=== PATIENT | male | born 1955 | race Caucasian/White ===

== ENCOUNTER 2021-02-23 07:15 | Outpatient (CLI) | payer MEDICARE, SELFPAY ==
[2021-02-23 07:55] LABS: Basophils Percent Auto 0.5 % (0.2-1.2); Eosinophils Absolute Auto 0.1 K/mm3 (0-0.3); Eosinophils Percent Auto 2.3 % (0-4.4); Hematocrit 40.6 % (42.0-52.0); Hemoglobin 13.3 g/dL (14.0-18.0); Immature Granulocyte Absolute 0.02 K/mm3 (0.00-0.031); Immature Granulocyte Percent A 0.4 % (0-0.5); Lymphocytes Absolute Auto 1.33 K/mm3 (0.9-3.2); Mean Corpuscular HGB Conc 32.8 g/dl (32-36); Mean Corpuscular Hemoglobin 28.7 pg (26-34); Mean Corpuscular Volume 87.7 fl (80-100); Monocytes Absolute Auto 0.6 K/mm3 (0.1-0.6); Monocytes Percent Auto 10.6 % (2.6-8.5); Neutrophils Absolute Auto 3.5 K/mm3 (1.3-6.7); Neutrophils Percent Auto 62.2 % (45.5-73.1); Platelet Count Result 260 k/mm3 (150-375); Red Blood Count 4.63 M/mm3 (4.6-6.20); Red Cell Distribution Width 12.3 % (11.5-14.5); White Blood Count 5.6 K/mm3 (4.5-10.0)
[2021-02-23 08:08] LABS: Alanine Aminotransferase 36 U/L (4-50); Albumin Level 4.5 g/dL (3.5-5.1); Alkaline Phosphatase 54 U/L (38-126); Anion Gap 10 mmol/L (8-16); Aspartate Amino Transferase 33 U/L (17-59); Bilirubin,Total 1.3 mg/dL (0.2-1.3); Blood Urea Nitrogen 18 mg/dL (9-20); Calcium 9.6 mg/dL (8.4-10.2); Carbon Dioxide 24 mmol/L (22-30); Chloride 105 mmol/L (98-107); Cholesterol 180 mg/dL (0-200); Estimated Glomerular Filt Rate 55; Glucose 108 mg/dL (75-110); HDL Direct 57 mg/dL; Potassium 4.2 mmol/L (3.4-5.0); Sodium 139 mmol/L (137-145); Triglycerides 99 mg/dL (<150); Uric Acid 6.3 mg/dL (3.5-8.5)
[2021-02-23 08:18] LABS: LDL Cholesterol Direct 82 mg/dL
[2021-02-23 08:37] LABS: Prostate Specific Antigen 0.3 ng/mL (< OR = 4.0)
[2021-02-23 23:20] LABS: Hemoglobin A1C 5.6 % (<5.7)
== END 2021-02-23 07:16 | disposition home or self-care (01) ==
PROVIDERS: PCP Family Medicine; Visit Provider Family Medicine
DX: E78.5 Hyperlipidemia, unspecified (principal); I10 Essential (primary) hypertension; M19.90 Unspecified osteoarthritis, unspecified site; E66.3 Overweight; Z12.5 Encounter for screening for malignant neoplasm of prostate
CPT/HCPCS: 36415; 80053; 80061; 83036; 84153; 84443; 84550; 85025; G0103

== ENCOUNTER 2021-03-15 13:46 | Outpatient (CLI) | payer MEDICARE, SELFPAY ==
[2021-03-15 14:15] LABS: Uric Acid 7.1 mg/dL (3.5-8.5)
== END 2021-03-15 13:47 | disposition home or self-care (01) ==
PROVIDERS: PCP Family Medicine; Visit Provider Family Medicine
DX: M19.90 Unspecified osteoarthritis, unspecified site (principal)
CPT/HCPCS: 36415; 84550

== ENCOUNTER 2021-11-08 06:44 | Emergency (ER) | payer MEDICARE, SELFPAY ==
--- NOTE | ~2021-11-08 | CT_ITS ---
EXAMINATION: CT cervical spine wo con EXAM DATE: 11/08/2021 08:07 INDICATION: Fall, head injury. TECHNIQUE: Spiral CT of the cervical spine was performed without contrast. Axial images were reviewe d. Coronal and sagittal reformatted images cervical spine were also reviewed. The dose-length produc t (DLP) for this examination was 453.72 mGy-cm. The exposure was tailored according to patient size (auto mA exposure control), and iterative reconstruction (ASIR) was used as additional dose reduction technique. There is no prior study for comparison. FINDINGS: Large lower cervical anteriorly based osteophytes. Moderate disc disease at C6-7, mild to m oderate at the other cervical levels. There is mild reversal of the normal cervical lordosis which ma y be positional, degenerative or spasm. There is no evidence of acute cervical fracture. The odontoi d process is intact. Pre-dens space is normal. Prevertebral soft tissue is normal. There are no so ft tissue abnormalities identified. There is no disc space widening or traumatic vertebral body subl uxation suspected. Moderate cervical arthropathy. A detailed level by level evaluation of spondylosis can be added as addendum if requested. IMPRESSION: 1. No acute cervical fracture. 2. Reversal of normal cervical lordosis. Spondylosis. Reviewed, dictated and finalized at location B. PEMENT MAKER
--- NOTE | ~2021-11-08 | CT_ITS ---
EXAMINATION: CT brain wo con DATE: 11/08/2021 08:07 INDICATION: Fall presenting with neck pain which radiates to the face and top of the head. TECHNIQUE: Computed tomography (CT) of the head was performed without intravenous contrast. Sagittal and coronal reconstructions were performed. The mA was adjusted according to patient size. Iterative reconstruction technique was employed. The dose-length product was 605.33 mGy-cm. COMPARISON: None FINDINGS: No fracture. No acute intracranial hemorrhage, acute infarction or abnormal extra axial fluid collect ion. Ventricles are normal and symmetric. No mass/mass effect. Mild mucosal thickening the bilateral ethmoid sinuses. The orbits and mastoid air cells are normal. IMPRESSION: 1. No fracture or acute intracranial process. Reviewed, dictated and finalized at location A. [employer] COOK
[2021-11-08 06:53] VITALS: TEMP 36.7
[2021-11-08 06:55] VITALS: BP 143/82; PULSE 95; RESP 14; TEMP 36.6; O2SAT 99
--- NOTE | 2021-11-08 08:21 | ED.GENADULT ---
HPI - General Adult General Chief complaint: Neck Pain/Injury Stated complaint: continued neck pain after recent injury Time Seen by Provider: 11/08/21 07:24 Source: patient Mode of arrival: ambulatory Limitations: no limitations History of Present Illness HPI narrative: Patient 66 years old white male, fell on ice 8 days ago, work-up the second day with pain at the left side of the neck, gradually spreading all over the neck, over the last 2 days pain radiating to the back of the head and including the whole head. Patient have trouble to turning his head to either side or even bend forward. Patient denies head trauma or loss of consciousness or other injuries. Patient's drove him to the emergency room. Patient denies any tingling, numbness or weakness of the extremities Related Data Home Medications Medication Instructions Recorded Confirmed atorvastatin 20 mg PO DAILY 11/08/21 hydrochlorothiazide 12.5 mg PO DAILY 11/08/21 lisinopril 20 mg PO DAILY 11/08/21 Allergies Allergy/AdvReac Type Severity Reaction Status Date / Time No Known Allergies Allergy Unknown Verified 11/08/21 07:01 Review of Systems Review of Systems: CONSTITUTIONAL: Denies fever, chills, or sweats. EYES: Denies visual changes, redness, or discharge. ENT: Denies rhinorrhea, congestion, sore throat, or otalgia. CARDIOVASCULAR: Denies chest pain, palpitations, or edema. RESPIRATORY: Denies cough or dyspnea. GASTROINTESTINAL: Denies abdominal pain, nausea, vomiting, or diarrhea. GENITOURINARY: Denies dysuria or hematuria. SKIN: Denies rash or itching. MUSCULOSKELETAL: Denies back pain, joint pain, or myalgia. NEUROLOGIC: Denies headache, numbness, or weakness. PSYCHIATRIC: Denies anxiety or depression. PMFSH Social History Social History Smoking status: Former smoker Smoking end date: 09/29/92 Alcohol intake: current Exam Narrative: General appearance: Well-developed, well-nourished Skin: Normal color Head: Normocephalic, nontraumatic Eyes: Clear conjunctiva ENT: Oropharynx normal, ears normal, nose normal Neck: Diffuse neck tenderness, severe limited range of motion Chest and respiratory: Airway patent, no respiratory distress, no accessory muscle use Heart: Regular rate/rhythm Abdomen: Soft, nontender, no organomegaly, quiet bowel sounds Vascular: Normal peripheral pulses, normal capillary refill. Musculoskeletal: Normal range of motion, nontender back Neurologic: Alert and oriented ?3, OIL LE[employer]ER is normal as tested, no gross motor deficit Course Course Emergency Course: Stable Vital Signs Vital signs: Vital Signs Temperature 36.7 C 11/08/21 06:53 Temperature 36.6 C 11/08/21 06:55 Pulse Rate 95 11/08/21 06:55 Respiratory Rate 14 11/08/21 06:55 Blood Pressure 143/82 H 11/08/21 06:55 Pulse Oximetry 99 11/08/21 06:55 Medical Decision Making MDM Narrative Medical decision making narrative: Fall with neck pain Differential Diagnosis Differential Diagnosis: Muscular strain/strain, fracture Vital Signs Vital Signs: Vital Signs Temperature 36.7 C 11/08/21 06:53 Temperature 36.6 C 11/08/21 06:55 Pulse Rate 95 11/08/21 06:55 Respiratory Rate 14 11/08/21 06:55 Blood Pressure 143/82 H 11/08/21 06:55 Pulse Oximetry 99 11/08/21 06:55 Imaging Data Radiologist's impression: Impressions Head CT 11/08/21 08:17 IMPRESSION: 1. No fracture or acute intracranial process. Cervical Spine CT 11/08/21 08:26 IMPRESSION: 1. No acute cervical fracture. 2. Reversal of normal cervical lordosis. Spondylosis. Critical Care Time
[2021-11-08] MEDS: MORPHINE SULFATE INJ (*CRX) 10 MG/ML AMP 6 MG IM (08:36)
[2021-11-08] MEDS: KETOROLAC (*BKC) 60 MG/2 ML VIAL IM (08:39)
[2021-11-08] MEDS: diazePAM (*CRX) 5 MG TABLET PO (08:40)
[2021-11-08] MEDS: ONDANSETRON HCL ODT 4 MG TABLET PO (08:40)
[2021-11-08 09:35] VITALS: BP 130/74; PULSE 74; RESP 18; O2SAT 97
== END 2021-11-08 09:40 | disposition home or self-care (01) ==
PROVIDERS: Emergency Provider Emergency Medicine; PCP Family Medicine
DX: S13.4XXA Sprain of ligaments of cervical spine, initial encounter (principal); W00.0XXA Fall on same level due to ice and snow, initial encounter
CPT/HCPCS: 70450; 72125; 96372; 99284; A9270; J1885; J2270

== ENCOUNTER 2024-09-03 07:25 | Emergency (ER) | payer MEDICARE, SELFPAY ==
--- NOTE | ~2024-09-03 | CT_ITS ---
EXAMINATION: CT lumbar spine wo con DATE: 09/03/2024 09:17 INDICATION: Low back pain. TECHNIQUE: Computed tomography (CT) of the lumbar spine was performed without intravenous contrast. A utomated exposure control and iterative reconstruction technique were employed. The dose-length produ ct was 802.56 mGy-cm. COMPARISON: None FINDINGS: There is a 2.3 cm cyst in left kidney. There is 3 mm anterolisthesis of L4 on L5 and 3 mm r etrolisthesis of L5 on S1. Vertebral body heights are normal. There is mildly decreased disc height a t L1-L2, moderately decreased disc height at L2-L3, mildly decreased disc height at L3-L4, and severe ly decreased disc height at L5-S1. There is Baastrup disease at L4-L5. The following disc levels are specifically discussed: L1-L2: The disc is bulging. There is moderate bilateral facet joint osteoarthritis. There is mild chris ateral neural foraminal stenosis. There is mild central canal stenosis. L2-L3: The disc is bulging. There is moderate bilateral facet joint osteoarthritis. There is mild chris ateral neural foraminal stenosis. There is mild central canal stenosis. L3-L4: The disc is bulging. There is mild bilateral facet joint osteoarthritis. There is mild bilater al neural foraminal stenosis. There is mild central canal stenosis. L4-L5: The disc is bulging. There is severe bilateral facet joint osteoarthritis. There is moderate b ilateral neural foraminal stenosis. There is mild central canal stenosis. There is severe stenosis of the lateral recesses. L5-S1: The disc is bulging. There is severe bilateral facet joint osteoarthritis. There is moderate b ilateral neural foraminal stenosis. There is mild central canal stenosis. IMPRESSION: 1. Severe lumbar spondylosis. Reviewed, dictated and finalized at location A. CATION ADMINISTRATION PROFESSIONAL
[2024-09-03 07:28] VITALS: BP 151/85; PULSE 83; RESP 15; TEMP 36.6; O2SAT 98
--- NOTE | 2024-09-03 08:47 | ED_ITS ---
HPI - Back Pain/Injury General Chief Complaint: Back Pain/Injury Stated Complaint: lower back pain and spasms Time Seen by Provider: 09/03/24 08:07 Source: patient and family Mode of arrival: ambulatory Limitations: no limitations History of Present Illness HPI Narrative: Patient presents with low back pain of 2-3 days duration and worsening today. This has been associated with spasms any acute worsening between to 3:00 a.m. this morning. He took 500 mg of Tylenol at 3:00 a.m.. He notes that a few days ago he was lifting boxes and later that day he felt sore and achy. He has a history of low back pain but never like this. At baseline he does take Tylenol p.r.n. essentially daily but usually just 1 500 mg tablet. Other than the lifting he denies any blunt trauma or cardiac stent or other known injury. No history of cancer. He did have a mild cold recently approximately 1 week ago that lasted for 3 days any took a COVID test at that was negative the otherwise denies any infectious symptoms at this time that anything else. He denies any abdominal pain, chronic steroid use, or fever. He denies any IV drug use, paresthesias, or saddle anesthesia. He denies any incontinence of bowel or bladder. No syncope and no urinary symptoms such as dysuria, hematuria, urgency or frequency. Patient notes his pain is slightly better when he is but slightly hunched over in a flexed position. Pain does not radiate into or leg. Related Data Home Medications Medication Instructions Recorded Confirmed atorvastatin 20 mg tablet 20 mg PO DAILY 11/08/21 hydrochlorothiazide 12.5 mg tablet 12.5 mg PO DAILY 11/08/21 lisinopril 20 mg tablet 20 mg PO DAILY 11/08/21 Allergies Allergy/AdvReac Type Severity Reaction Status Date / Time No Known Allergies Allergy Unknown Verified 09/03/24 07:26 [facility] Past Medical History Medical History Low back pain Social History Social History (Updated 09/03/24 @ 09:27 by Arminda Mccray MD) Smoking status: Former smoker Smoking end date: 09/29/92 Alcohol intake: current Exam Narrative: GENERAL: Well-appearing, well-nourished, and in no acute distress. HEAD: Normocephalic, atraumatic. EYES: Non injected, non icteric ENT: Nares clear, no rhinorrhea or epistaxis. NECK: Supple. CHEST: Speaking in full sentences. No respiratory distress. HEART: Regular rate and rhythm. . ABDOMEN: Soft, nondistended. EXTREMITIES: Normal range of motion. No lower extremity edema. Back: No tenderness to palpation of midline thoracic or lumbar spine which have no bony step-offs or deformity. Mild paravertebral tenderness to palpation. Patient able to demonstrate flexion extension in his side to side in rotational movement about the lumbar spine although he does note that extension worsens his pain as does bending to the left. Straight leg test positive on the right. SKIN: Warm, dry, no rash. NEURO: No focal deficits. Alert and oriented x3. Sensation intact in bilateral lower extremities throughout and symmetric. Brisk and symmetric patellar reflexes bilaterally. 5/5 strength with bilateral ankle dorsiflexion and plantar flexion, bilateral knee flexion extension, bilateral hip flexion, abduction, adduction. PSYCH: Normal mood and affect. Course Vital Signs Vital signs: Vital Signs Temperature 98 F 09/03/24 07:28 Pulse Rate 83 09/03/24 07:28 Respiratory Rate 15 09/03/24 07:28 Blood Pressure 151/85 H 09/03/24 07:28 Pulse Oximetry 98 09/03/24 07:28 Oxygen Delivery Room Air 09/03/24 07:28 Temperature 98.1 F 09/03/24 11:55 Pulse Rate 71 09/03/24 11:55 Respiratory Rate 18 09/03/24 11:55 Blood Pressure 141/85 H 09/03/24 11:55 Pulse Oximetry 97 09/03/24 11:55 Oxygen Delivery Room Air 09/03/24 07:28 MDM - Back Pain/Injury MDM Narrative Medical decision making narrative: Patient presents with low back pain of 2-3 days duration with worsening today. In the emergency department he is afebrile with vital signs notable for hypertension. Back has no deformities, external skin changes, or signs of trauma. Curvature is within normal limits. No tenderness is noted on palpation of the spinous processes which are midline. Lumbar paraspinal muscles are not tender. Patient demonstrates flexion, extension, and [id number] rotation of the lumbar spine. Sensation to the lower extremities is normal bilaterally. Dorsi/plantar flexion is normal bilaterally. They do not have any other red flags for fracture, malignancy, infection (e.g. spinal epidural abscess), or aortic/vascular: No trauma, not on chronic steroids, no cancer, no fever, IV drug use, abdominal pain, tearing pain, syncope, or urinary symptoms. However, Straight leg raise test is positive on the right. Given this, will proceed with imaging at this time. Patient's initial bladder scan is performed too long after he gives a urine sample. He is able to void again and his PVR is 8mL. We did discuss multimodal pain regimen strategy that is meant to balance rest with maintaining stretching activities of daily living. Patient verifies understanding and is in agreement. He does have a history of a duodenal ulcer perforation and for this reason has been advised to avoid NSAIDs. We discussed that the 1 time dose of ketorolac intramuscularly is still reasonable to give along with a small dose of a muscle relaxer but would avoid prescribing NSAIDs p.o. for the outpatient use. He confirms his primary care physician. Discharged with prescriptions for acetaminophen, lidocaine patches, topical NSAID, and a muscle relaxer for QHS. Differential Diagnosis Differential diagnosis: Likely sciatica (but no radiating pain) and strain of lumbar region Lab Data Attestation: I reviewed the patient's lab results. Labs: Lab Results 09/03/24 Range/Units 10:27 Urine Color Yellow (Yellow) Urine Appearance Clear (Clear) Urine pH 5.0 (5.0-9.0) Ur Specific Chandler 1.027 (1.001-1.035) Urine Protein Negative (Negative) mg/dL Urine Glucose (UA) Negative (Negative) mg/dL Urine Ketones Negative (Negative) mg/dL Ur Blood (Man) Negative (Negative) Urine Nitrate Negative (Negative) Urine Bilirubin Negative (Negative) Urine Urobilinogen 0.2 (<2.0) mg/dL Leukocyte Esterase Rfl Negative (Negative) POOJA/UL Imaging Data Radiologist's impression: Impressions Lumbar Spine CT 09/03/24 09:25 IMPRESSION: 1. Severe lumbar spondylosis. Discharge Plan Discharge Clinical Impression: Strain of lumbar region, Lumbar spondylosis Patient Disposition: Home, Self-Care Condition: Stable Instructions: Antibiotic Form, Low Back Strain (ED), Lower Back Exercises (ED), Core Strengthening Exercises (ED) Additional Instructions: As we discussed, the recommendation is for a multimodal pain regimen to target your symptoms and balance your ability to rest but maintain activities and movement and do low back exercises to strengthen the muscles. It is safe to take 4000 mg of acetaminophen/Tylenol per day. Take the other medications as prescribed. Follow-up with primary care physician. Return to the ER if you have increased pain in your back, you develop lower extremity weakness/numbness/paralysis, you have numbness or tingling in your private parts, or you are unable to control your ability to urinate/stool. Prescriptions: New lidocaine 4 % adhesive patch,medicated 1 patch topical DAILY PRN (Reason: pain) Qty: 10 0RF methocarbamol 750 mg tablet 750 mg PO HS Qty: 7 0RF acetaminophen 500 mg capsule 1,000 mg PO Q6H PRN (Reason: pain) Qty: 30 0RF diclofenac sodium [Aleve (diclofenac)] 1 % gel 2 g topical QID Qty: 100 0RF Rx Instructions: apply to affected area No Action atorvastatin 20 mg tablet 20 mg PO DAILY lisinopril 20 mg tablet 20 mg PO DAILY hydrochlorothiazide 12.5 mg tablet 12.5 mg PO DAILY naproxen [Naprosyn] 500 mg tablet 500 mg PO BID PRN (Reason: pain) Qty: 14 0RF cyclobenzaprine 10 mg tablet 10 mg PO TID PRN (Reason: muscle spasm) Qty: 20 0RF Follow-up/Referrals: Jameson,MD Gino [Primary Care Provider] - Stand Alone Forms: Work/School Release IP Time of Disposition: 11:34
[2024-09-03] MEDS: HYDROcodone/acetaminophen (*CRX) 5-325 MG TABLET 1 TAB PO (09:01)
[2024-09-03 09:30] VITALS: BP 142/88; PULSE 75; RESP 18; O2SAT 96
--- NOTE | 2024-09-03 09:36 | PC.NURSE ---
Patient unable to urinate at this time. patient aware that we need urine
[2024-09-03 10:35] LABS: Add Urine Microscopic? NO; Appearance Urine Clear (Clear); Bilirubin Urine Negative (Negative); Blood Urine Negative (Negative); Color Urine Yellow (Yellow); Glucose Urine UA Negative (Negative); Ketones Urine Negative (Negative); Leukocyte Esterase Ur Negative LEU/UL (Negative); Nitrate Urine Negative (Negative); Protein Urine Negative (Negative); Specific Grav Ur 1.027 (1.001-1.035); Urobilinogen Urine 0.2 mg/dL (<2.0)
--- NOTE | 2024-09-03 11:44 | PC.NURSE ---
Patient's initial bladder scan showed 180mL. Patient's post void scan showed 8mL
[2024-09-03] MEDS: KETOROLAC 30 MG/ML VIAL (*BKC) 15 MG IM (11:52)
[2024-09-03 11:55] VITALS: BP 141/85; PULSE 71; RESP 18; TEMP 36.7; O2SAT 97
[2024-09-03] MEDS: diazePAM (*CRX) 2.5 MG TABLET PO (11:58)
--- NOTE | 2024-09-03 12:02 | PC.NURSE ---
pt was ready to be discharged from ED but Pyxis only stocked for 5mg Diazepam. override 5mg PO tablet with LEN Petty and LEN Krishna to administer 2.5mg PO Tablet.
== END 2024-09-03 11:55 | disposition home or self-care (01) ==
PROVIDERS: Emergency Provider Student in an Organized Health Care Education/Training Program; PCP Family Medicine
DX: S39.012A Strain of muscle, fascia and tendon of lower back, initial encounter (principal); M47.816 Spondylosis without myelopathy or radiculopathy, lumbar region; Z87.891 Personal history of nicotine dependence; X58.XXXA Exposure to other specified factors, initial encounter
CPT/HCPCS: 72131; 81003; 96372; 99284; A9270; J1885

== ENCOUNTER 2025-06-02 09:14 | Outpatient (CLI) | payer MEDICARE, SELFPAY ==
--- OUTSIDE RECORDS SUMMARY | 2010-07-26 19:00 | XMS_ITS | Continuity of Care Document ---
Author Organization [facility] Address [address] [place] [address] Phone Care Team Providers Care Wardrobe Technician Name Role Phone Jos MILLER MD, Laxmi Unavailable Unavailabl e Procedures Procedure Date Echo, Complete, Interp Advance Directives Directive Yes / No Effective Date File Name No Information Encounters Encounter Description Practice Location Reason(s) For Visit Diagnoses Date Provider Providers Copied on Encounter [facility], [address], [place], [address], [place] tel:[phone] [facility] No Information 0 Jos Hair. [facility] , [address], [place], [place], [id number], [place]. tel:[phone] Referring Provider: Marianela Jolley, [address] [place], [address]. tel:[phone] Family History Family Member Type Diagnosis Age At Onset No Information Payers Payer name Insurance type Covered alliance party ID Authoriza tion(s) [facility] 12 [id number] Social History Type Description Quantity Date Captured Comments Sex Male Smoking Status No Information Chief Complaint And Reason For Visit No Information Reason For Referral Reason For Referral No Information History Of Present Illness Encounter Date Complaint History Of Prese nt Illness No Information Functional Status Date Functional Assessmen t No Information Instructions Date Instruction Additional Infor mation No Information Assessments Type Assessment Date No Information Patient Care Teams Name Effective Dates (start - stop) Status Members No Information
[2025-06-02 10:13] LABS: Anion Gap 9 mmol/L (4-12); Blood Urea Nitrogen 26 mg/dL (9-20); Calcium 9.1 mg/dL (8.4-10.2); Carbon Dioxide 22 mmol/L (22-30); Chloride 106 mmol/L (98-107); Estimated Glomerular Filt Rate > 60; Glucose 107 mg/dL (65-110); Potassium 4.3 mmol/L (3.4-5.0); Sodium 137 mmol/L (137-145)
== END 2025-06-02 09:15 | disposition home or self-care (01) ==
LOC: ANHLAB 09:16
PROVIDERS: PCP Family Medicine; Visit Provider Family Medicine
DX: I10 Essential (primary) hypertension (principal)
CPT/HCPCS: 36415; 80048